=== PATIENT | male | born 1935 | race Caucasian/White ===

== ENCOUNTER → 2018-04-04 | Outpatient (CLI) | payer MEDICARE, BC ==
[~2018-04-04] MED LIST: ABAC300; ASPI81CH PO; AZIT250; CALCAVITD PO; CIPR500 PO; DIAZ5 PO; FISH1000 PO; GLUCOSAMINE1000 MG PO; HYDACE10B; HYDR-86; HYDR1TAB94 PO; KRILL OIL500 MG PO; MULT50L; NIACIN ER500 MG PO; POTCHL10ER PO; RABE20 PO; SENN187 PO; TAMS.4ER; TAMS.4ER PO; Viagra100 MG PO; ZYRTEC10 MG PO
== END ==
LOC: PLD 13:22 → LAB SHORT 13:22
DX: D22.72 Melanocytic nevi of left lower limb, including hip (principal)
CPT/HCPCS: 88305

== ENCOUNTER 2018-05-20 22:29 | Inpatient (IN) | payer MEDICARE, BC ==
[~2018-05-20] VITALS: Ht 172.7 cm; Wt 70.3 kg
[~2018-05-20 22:29] MED LIST changes: -MULT50L; +MULTI VITAMIN1 EACH PO
[2018-05-20] MEDS ORDERED: ZESTORETIC 20-251 EA PO (22:59)
[2018-05-20] MEDS ORDERED: METO25ER PO (22:59)
[2018-05-20 23:05] LABS: BASOPHILS ABSOLUTE AUTO 0.04 K/mm3 (0.00-0.23); BASOPHILS PERCENT AUTO 0 % (0-2); EOSINOPHILS ABSOLUTE AUTO 0.16 K/mm3 (0.00-0.68); EOSINOPHILS PERCENT AUTO 1 % (0-6); Hematocrit 38.4 % (37.0-53.0); Hemoglobin 13.1 g/dL (13.5-17.5); IMMATURE GRAN ABSOLUTE AUTO 0.04 K/mm3 (0.00-0.10); IMMATURE GRAN PERCENT AUTO 0 % (0-1); LYMPHOCYTES ABSOLUTE AUTO 1.61 K/mm3 (0.84-5.20); LYMPHOCYTES PERCENT AUTO 11 % (21-46); MONOCYTES ABSOLUTE AUTO 0.57 K/mm3 (0.16-1.47); MONOCYTES PERCENT AUTO 4 % (4-13); Mean Corpuscular HGB 29.9 pg (26.0-34.0); Mean Corpuscular HGB Conc 34.1 g/dL (31.5-36.5); Mean Corpuscular Volume 88 fL (80-100); Mean Platelet Volume 9.1 fL (9.1-12.4); NEUTROPHILS ABSOLUTE AUTO 12.06 K/mm3 (1.96-9.15); NEUTROPHILS PERCENT AUTO 83 % (41-73); Platelet Count 270 K/mm3 (150-400); RDW Coefficient Variation 12.8 % (11.7-14.2); RDW Standard Deviation 41.1 fL (35.1-46.3); Red Blood Cell Count 4.38 M/mm3 (4.30-5.90); White Blood Cell Count 14.48 K/mm3 (4.00-11.30)
[2018-05-20 23:23] LABS: Alanine Aminotransfer (ALT/SGP 20 U/L (12-78); Albumin, Blood 2.9 g/dL (3.4-5.0); Albumin/Globulin Ratio 0.9 (0.8-1.8); Alk Phos 54 U/L (50-136); Anion Gap 9 mmol/L (6-16); Aspartate Aminotrans (AST/SGOT 22 U/L (12-37); Bilirubin, Total 0.4 mg/dL (0.1-1.0); Blood Urea Nitrogen 9 mg/dL (8-24); Bun/Creatinine Ratio 11.3 (12.0-20.0); CO2, Blood 25 mmol/L (21-32); Calcium, Blood 7.5 mg/dL (8.5-10.1); Chloride, Blood 96 mmol/L (98-108); Creatinine, Blood 0.79 mg/dL (0.60-1.20); Globulin, Blood 3.2 g/dL (2.2-4.0); Glomerular Filtration Rate >60 (60-); Glucose, Blood 95 mg/dL (70-99); Potassium, Blood 4.1 mmol/L (3.5-5.5); Sodium, Blood 130 mmol/L (136-145); Total Protein, Blood 6.1 g/dL (6.4-8.2)
[2018-05-21 00:05] LABS: Source, Urine Clean Catch
[2018-05-21 00:14] LABS: Bilirubin, Urine Neg (Neg); Blood, Urine 1+ (Neg); Glucose Qualitative, Urine Neg (Neg); Ketones, Urine Neg (Neg); Leukocyte Esterase, Urine 1+ (Neg); Nitrite, Urine Neg (Neg); Protein, Urine Neg (Neg); Urobilinogen, Urine NORM (Normal)
[2018-05-21 00:22] LABS: Appearance, Urine Clear (Clear); Color, Urine Yellow (P-Yellow)
[2018-05-21 00:23] LABS: Bacteria Mod /hpf; Squamous Epithelial Cells Not Seen /hpf (Few); White Blood Cells, Urine 0-2 /hpf (0-5)
[2018-05-21] MEDS ORDERED: Protonix40 MG PO (00:28)
[2018-05-21] MEDS ORDERED: Ultram50 MG PO (00:28)
[2018-05-21] MEDS ORDERED: ACET325 PO (12:44)
[2018-05-21] MEDS ORDERED: AZIT500 PO (12:45)
[2018-05-21] MEDS ORDERED: CEFD300 PO (12:45)
== END 2018-05-21 13:23 | disposition home or self-care (01) | DRG 871 ==
LOC: ER 22:29 → MEDS 05-21 01:16
PROVIDERS: Emergency Medicine
DX: A41.9 Sepsis, unspecified organism (principal); J18.9 Pneumonia, unspecified organism; J96.01 Acute respiratory failure with hypoxia; E87.1 Hypo-osmolality and hyponatremia; K44.9 Diaphragmatic hernia without obstruction or gangrene; R53.81 Other malaise; E86.0 Dehydration; Z85.46 Personal history of malignant neoplasm of prostate
CPT/HCPCS: 36415; 70450; 71046; 80053; 81001; 83605; 83880; 85025; 87086; 93005; 93010; 96361; 96365; 96375; 97110; 97116; 97161; 99285; G8978; G8979; J0456; J0696; J2930; J7030; J7050

== ENCOUNTER 2018-05-23 16:16 | Observation (INO) | payer MEDICARE, BC ==
[~2018-05-23] VITALS: Ht 172.7 cm; Wt 69.9 kg
[~2018-05-23 16:16] MED LIST changes: +ACET325 PO; +AZIT500 PO; +CEFD300 PO; +METO25ER PO; +Protonix40 MG PO; +Ultram50 MG PO; +ZESTORETIC 20-251 EA PO
[2018-05-23 17:47] LABS: BASOPHILS ABSOLUTE AUTO 0.02 K/mm3 (0.00-0.23); BASOPHILS PERCENT AUTO 0 % (0-2); EOSINOPHILS ABSOLUTE AUTO 0.09 K/mm3 (0.00-0.68); EOSINOPHILS PERCENT AUTO 1 % (0-6); Hematocrit 39.1 % (37.0-53.0); Hemoglobin 13.3 g/dL (13.5-17.5); IMMATURE GRAN ABSOLUTE AUTO 0.04 K/mm3 (0.00-0.10); IMMATURE GRAN PERCENT AUTO 0 % (0-1); LYMPHOCYTES ABSOLUTE AUTO 1.46 K/mm3 (0.84-5.20); LYMPHOCYTES PERCENT AUTO 13 % (21-46); MONOCYTES ABSOLUTE AUTO 0.63 K/mm3 (0.16-1.47); MONOCYTES PERCENT AUTO 6 % (4-13); Mean Corpuscular Volume 88 fL (80-100); Mean Platelet Volume 9.6 fL (9.1-12.4); NEUTROPHILS ABSOLUTE AUTO 8.95 K/mm3 (1.96-9.15); NEUTROPHILS PERCENT AUTO 80 % (41-73); Platelet Count 315 K/mm3 (150-400); RDW Coefficient Variation 12.8 % (11.7-14.2); RDW Standard Deviation 41.9 fL (35.1-46.3); Red Blood Cell Count 4.43 M/mm3 (4.30-5.90); White Blood Cell Count 11.19 K/mm3 (4.00-11.30)
[2018-05-23 18:19] LABS: Alanine Aminotransfer (ALT/SGP 30 U/L (12-78); Albumin, Blood 3.2 g/dL (3.4-5.0); Albumin/Globulin Ratio 0.9 (0.8-1.8); Alk Phos 64 U/L (50-136); Anion Gap 8 mmol/L (6-16); Aspartate Aminotrans (AST/SGOT 34 U/L (12-37); Bilirubin, Total 0.6 mg/dL (0.1-1.0); Blood Urea Nitrogen 8 mg/dL (8-24); Bun/Creatinine Ratio 8.4 (12.0-20.0); CO2, Blood 28 mmol/L (21-32); Calcium, Blood 8.7 mg/dL (8.5-10.1); Chloride, Blood 93 mmol/L (98-108); Creatinine, Blood 0.95 mg/dL (0.60-1.20); Globulin, Blood 3.6 g/dL (2.2-4.0); Glomerular Filtration Rate >60 (60-); Glucose, Blood 94 mg/dL (70-99); Potassium, Blood 4.4 mmol/L (3.5-5.5); Sodium, Blood 129 mmol/L (136-145); Total Protein, Blood 6.8 g/dL (6.4-8.2)
[2018-05-24 05:11] LABS: BASOPHILS ABSOLUTE AUTO 0.03 K/mm3 (0.00-0.23); BASOPHILS PERCENT AUTO 0 % (0-2); EOSINOPHILS ABSOLUTE AUTO 0.08 K/mm3 (0.00-0.68); EOSINOPHILS PERCENT AUTO 1 % (0-6); Hematocrit 35.3 % (37.0-53.0); IMMATURE GRAN ABSOLUTE AUTO 0.03 K/mm3 (0.00-0.10); IMMATURE GRAN PERCENT AUTO 0 % (0-1); LYMPHOCYTES ABSOLUTE AUTO 1.37 K/mm3 (0.84-5.20); LYMPHOCYTES PERCENT AUTO 15 % (21-46); MONOCYTES ABSOLUTE AUTO 0.77 K/mm3 (0.16-1.47); MONOCYTES PERCENT AUTO 8 % (4-13); Mean Corpuscular HGB 29.3 pg (26.0-34.0); Mean Corpuscular Volume 86 fL (80-100); Mean Platelet Volume 9.4 fL (9.1-12.4); NEUTROPHILS ABSOLUTE AUTO 7.06 K/mm3 (1.96-9.15); NEUTROPHILS PERCENT AUTO 76 % (41-73); Platelet Count 278 K/mm3 (150-400); RDW Coefficient Variation 12.8 % (11.7-14.2); RDW Standard Deviation 40.4 fL (35.1-46.3); Red Blood Cell Count 4.09 M/mm3 (4.30-5.90); White Blood Cell Count 9.34 K/mm3 (4.00-11.30)
[2018-05-24 05:44] LABS: Anion Gap 10 mmol/L (6-16); Blood Urea Nitrogen 7 mg/dL (8-24); Bun/Creatinine Ratio 8.6 (12.0-20.0); CO2, Blood 26 mmol/L (21-32); Calcium, Blood 8.1 mg/dL (8.5-10.1); Chloride, Blood 101 mmol/L (98-108); Creatinine, Blood 0.81 mg/dL (0.60-1.20); Glomerular Filtration Rate >60 (60-); Glucose, Blood 87 mg/dL (70-99); Potassium, Blood 3.9 mmol/L (3.5-5.5); Sodium, Blood 137 mmol/L (136-145)
[2018-05-24 08:59] LABS: Source, Urine Clean Catch
[2018-05-24 09:04] LABS: Bilirubin, Urine Neg (Neg); Blood, Urine Neg (Neg); Glucose Qualitative, Urine Neg (Neg); Ketones, Urine Neg (Neg); Leukocyte Esterase, Urine Neg (Neg); Nitrite, Urine Neg (Neg); Protein, Urine Neg (Neg); Specific Gravity, Urine 1.015 (1.003-1.022); Urobilinogen, Urine NORM (Normal)
[2018-05-24 09:11] LABS: Appearance, Urine Clear (Clear); Color, Urine Yellow (P-Yellow)
[2018-05-24 09:20] LABS: Osmolality, Urine 280 mos/kg (15-1400)
[2018-05-24 09:46] LABS: Sodium, Urine, Random 96 mmol/L (20-110)
[2018-05-24] MEDS ORDERED: SACC250C PO (14:50)
[2018-05-24] MEDS ORDERED: Prinivil10 MG PO (14:50)
[2018-05-24] MEDS ORDERED: FURO20 PO (14:51)
[2018-05-24] MEDS ORDERED: LEVO750 PO (14:51)
== END 2018-05-24 15:34 | disposition home or self-care (01) ==
LOC: ER 16:16 → MEDS 16:17 → ER 19:15 → MEDS 19:15 → ER 19:15 → MEDS 20:06 → ENPENDDIS 05-24 12:00 → MEDS 05-24 15:34
PROVIDERS: Family Medicine; Internal Medicine
DX: J18.9 Pneumonia, unspecified organism (principal); E87.1 Hypo-osmolality and hyponatremia; I10 Essential (primary) hypertension; K44.9 Diaphragmatic hernia without obstruction or gangrene; I50.33 Acute on chronic diastolic (congestive) heart failure; I35.1 Nonrheumatic aortic (valve) insufficiency; I77.810 Thoracic aortic ectasia; Z88.5 Allergy status to narcotic agent; Z88.8 Allergy status to other drugs, medicaments and biological substances; Z79.2 Long term (current) use of antibiotics; Z79.899 Other long term (current) drug therapy
CPT/HCPCS: 36415; 71046; 80048; 80053; 81003; 83605; 83880; 83930; 83935; 84145; 84300; 85025; 87040; 93005; 93010; 93306; 96365; 96375; 99285-25; C9113; G0378; J0456; J1956; J2405; J2543; J3370; J7030; J7050

== ENCOUNTER 2018-05-30 10:45 | Inpatient (IN) | payer MEDICARE, BC ==
[~2018-05-30] VITALS: Ht 172.7 cm; Wt 65.4 kg
[~2018-05-30 10:45] MED LIST changes: +FURO20 PO; +LEVO750 PO; +Prinivil10 MG PO; +SACC250C PO
[2018-05-30 11:27] LABS: BASOPHILS ABSOLUTE AUTO 0.03 K/mm3 (0.00-0.23); BASOPHILS PERCENT AUTO 0 % (0-2); EOSINOPHILS PERCENT AUTO 0 % (0-6); Hematocrit 39.5 % (37.0-53.0); Hemoglobin 13.4 g/dL (13.5-17.5); IMMATURE GRAN ABSOLUTE AUTO 0.11 K/mm3 (0.00-0.10); IMMATURE GRAN PERCENT AUTO 1 % (0-1); LYMPHOCYTES ABSOLUTE AUTO 1.22 K/mm3 (0.84-5.20); LYMPHOCYTES PERCENT AUTO 6 % (21-46); MONOCYTES ABSOLUTE AUTO 0.64 K/mm3 (0.16-1.47); MONOCYTES PERCENT AUTO 3 % (4-13); Mean Corpuscular HGB 29.9 pg (26.0-34.0); Mean Corpuscular HGB Conc 33.9 g/dL (31.5-36.5); Mean Corpuscular Volume 88 fL (80-100); Mean Platelet Volume 8.8 fL (9.1-12.4); NEUTROPHILS PERCENT AUTO 90 % (41-73); Platelet Count 361 K/mm3 (150-400); RDW Coefficient Variation 12.8 % (11.7-14.2); RDW Standard Deviation 41.2 fL (35.1-46.3); Red Blood Cell Count 4.48 M/mm3 (4.30-5.90)
[2018-05-30 11:45] LABS: Alanine Aminotransfer (ALT/SGP 19 U/L (12-78); Albumin, Blood 3.2 g/dL (3.4-5.0); Albumin/Globulin Ratio 0.8 (0.8-1.8); Alk Phos 64 U/L (50-136); Anion Gap 9 mmol/L (6-16); Aspartate Aminotrans (AST/SGOT 16 U/L (12-37); Bilirubin, Total 0.4 mg/dL (0.1-1.0); Blood Urea Nitrogen 12 mg/dL (8-24); Bun/Creatinine Ratio 12.3 (12.0-20.0); CO2, Blood 26 mmol/L (21-32); Calcium, Blood 8.6 mg/dL (8.5-10.1); Chloride, Blood 101 mmol/L (98-108); Creatinine, Blood 0.98 mg/dL (0.60-1.20); Globulin, Blood 3.8 g/dL (2.2-4.0); Glomerular Filtration Rate >60 (60-); Glucose, Blood 137 mg/dL (70-99); Potassium, Blood 4.1 mmol/L (3.5-5.5); Sodium, Blood 136 mmol/L (136-145); Troponin I <0.015 ng/mL (0.000-0.040)
[2018-05-30 14:10] LABS: Source, Urine Clean Catch
[2018-05-30 14:14] LABS: Bilirubin, Urine Neg (Neg); Blood, Urine Neg (Neg); Glucose Qualitative, Urine Neg (Neg); Ketones, Urine 3+ (Neg); Leukocyte Esterase, Urine Neg (Neg); Nitrite, Urine Neg (Neg); Protein, Urine Neg (Neg); Urobilinogen, Urine NORM (Normal)
[2018-05-30 14:22] LABS: Appearance, Urine Clear (Clear); Color, Urine Yellow (P-Yellow)
[2018-05-30] MEDS ORDERED: PROBIOTIC1 EAC4 PO (18:00)
[2018-05-31 04:55] LABS: BASOPHILS ABSOLUTE AUTO 0.04 K/mm3 (0.00-0.23); BASOPHILS PERCENT AUTO 0 % (0-2); EOSINOPHILS ABSOLUTE AUTO 0.04 K/mm3 (0.00-0.68); EOSINOPHILS PERCENT AUTO 0 % (0-6); Hematocrit 36.2 % (37.0-53.0); Hemoglobin 11.9 g/dL (13.5-17.5); IMMATURE GRAN ABSOLUTE AUTO 0.07 K/mm3 (0.00-0.10); IMMATURE GRAN PERCENT AUTO 1 % (0-1); LYMPHOCYTES PERCENT AUTO 12 % (21-46); MONOCYTES ABSOLUTE AUTO 0.91 K/mm3 (0.16-1.47); MONOCYTES PERCENT AUTO 6 % (4-13); Mean Corpuscular HGB 28.7 pg (26.0-34.0); Mean Corpuscular HGB Conc 32.9 g/dL (31.5-36.5); Mean Corpuscular Volume 87 fL (80-100); Mean Platelet Volume 8.9 fL (9.1-12.4); NEUTROPHILS ABSOLUTE AUTO 12.08 K/mm3 (1.96-9.15); NEUTROPHILS PERCENT AUTO 81 % (41-73); Platelet Count 340 K/mm3 (150-400); RDW Coefficient Variation 13.1 % (11.7-14.2); RDW Standard Deviation 41.6 fL (35.1-46.3); Red Blood Cell Count 4.15 M/mm3 (4.30-5.90); White Blood Cell Count 14.94 K/mm3 (4.00-11.30)
[2018-05-31 05:14] LABS: Anion Gap 9 mmol/L (6-16); Blood Urea Nitrogen 8 mg/dL (8-24); Bun/Creatinine Ratio 9.5 (12.0-20.0); CO2, Blood 25 mmol/L (21-32); Chloride, Blood 106 mmol/L (98-108); Creatinine, Blood 0.84 mg/dL (0.60-1.20); Glomerular Filtration Rate >60 (60-); Glucose, Blood 100 mg/dL (70-99); Potassium, Blood 3.6 mmol/L (3.5-5.5); Sodium, Blood 140 mmol/L (136-145)
[2018-06-01 05:28] LABS: BASOPHILS ABSOLUTE AUTO 0.06 K/mm3 (0.00-0.23); BASOPHILS PERCENT AUTO 1 % (0-2); EOSINOPHILS PERCENT AUTO 1 % (0-6); Hematocrit 36.8 % (37.0-53.0); Hemoglobin 12.2 g/dL (13.5-17.5); IMMATURE GRAN ABSOLUTE AUTO 0.04 K/mm3 (0.00-0.10); IMMATURE GRAN PERCENT AUTO 0 % (0-1); LYMPHOCYTES ABSOLUTE AUTO 2.15 K/mm3 (0.84-5.20); LYMPHOCYTES PERCENT AUTO 19 % (21-46); MONOCYTES ABSOLUTE AUTO 0.73 K/mm3 (0.16-1.47); MONOCYTES PERCENT AUTO 6 % (4-13); Mean Corpuscular HGB Conc 33.2 g/dL (31.5-36.5); Mean Corpuscular Volume 88 fL (80-100); Mean Platelet Volume 9.5 fL (9.1-12.4); NEUTROPHILS PERCENT AUTO 73 % (41-73); Platelet Count 315 K/mm3 (150-400); RDW Coefficient Variation 13.1 % (11.7-14.2); RDW Standard Deviation 42.1 fL (35.1-46.3); White Blood Cell Count 11.38 K/mm3 (4.00-11.30)
[2018-06-02 05:13] LABS: BASOPHILS ABSOLUTE AUTO 0.03 K/mm3 (0.00-0.23); BASOPHILS PERCENT AUTO 0 % (0-2); EOSINOPHILS ABSOLUTE AUTO 0.03 K/mm3 (0.00-0.68); EOSINOPHILS PERCENT AUTO 0 % (0-6); Hematocrit 34.3 % (37.0-53.0); Hemoglobin 11.5 g/dL (13.5-17.5); IMMATURE GRAN ABSOLUTE AUTO 0.04 K/mm3 (0.00-0.10); IMMATURE GRAN PERCENT AUTO 0 % (0-1); LYMPHOCYTES PERCENT AUTO 17 % (21-46); MONOCYTES ABSOLUTE AUTO 0.71 K/mm3 (0.16-1.47); MONOCYTES PERCENT AUTO 6 % (4-13); Mean Corpuscular HGB 29.6 pg (26.0-34.0); Mean Corpuscular HGB Conc 33.5 g/dL (31.5-36.5); Mean Corpuscular Volume 88 fL (80-100); Mean Platelet Volume 10.3 fL (9.1-12.4); NEUTROPHILS ABSOLUTE AUTO 8.87 K/mm3 (1.96-9.15); NEUTROPHILS PERCENT AUTO 76 % (41-73); Platelet Count 311 K/mm3 (150-400); RDW Coefficient Variation 12.8 % (11.7-14.2); RDW Standard Deviation 41.9 fL (35.1-46.3); Red Blood Cell Count 3.89 M/mm3 (4.30-5.90); White Blood Cell Count 11.68 K/mm3 (4.00-11.30)
== END 2018-06-02 14:48 | disposition short-term general hospital (02) | DRG 392 ==
LOC: ER 10:45 → MEDS 15:51 → SURS 06-02 10:20
PROVIDERS: Emergency Medicine; Student in an Organized Health Care Education/Training Program
DX: K57.92 Diverticulitis of intestine, part unspecified, without perforation or abscess without bleeding (principal); I50.32 Chronic diastolic (congestive) heart failure; I11.0 Hypertensive heart disease with heart failure; K44.9 Diaphragmatic hernia without obstruction or gangrene; Z96.641 Presence of right artificial hip joint; Z98.52 Vasectomy status; E86.0 Dehydration; Z87.01 Personal history of pneumonia (recurrent); K57.30 Diverticulosis of large intestine without perforation or abscess without bleeding
CPT/HCPCS: 36415; 74177; 80048; 80053; 81003; 82947; 83605; 83690; 84484; 85025; 87040; 93005; 93010; 96361; 96365; 96375; 96376; 99285-25; C9113; J0744; J1650; J2250; J2405; J2550; J2765; J3010; J7030; J7120; Q9967

== ENCOUNTER 2018-06-11 18:05 | Emergency (ER) | payer MEDICARE, BC ==
[~2018-06-11] VITALS: Ht 172.7 cm; Wt 63.5 kg
[~2018-06-11 18:05] MED LIST changes: +PROBIOTIC1 EAC4 PO
[2018-06-11 18:44] LABS: BASOPHILS ABSOLUTE AUTO 0.04 K/mm3 (0.00-0.23); BASOPHILS PERCENT AUTO 0 % (0-2); EOSINOPHILS ABSOLUTE AUTO 0.27 K/mm3 (0.00-0.68); EOSINOPHILS PERCENT AUTO 3 % (0-6); Hemoglobin 12.9 g/dL (13.5-17.5); IMMATURE GRAN ABSOLUTE AUTO 0.04 K/mm3 (0.00-0.10); IMMATURE GRAN PERCENT AUTO 0 % (0-1); LYMPHOCYTES ABSOLUTE AUTO 1.38 K/mm3 (0.84-5.20); LYMPHOCYTES PERCENT AUTO 13 % (21-46); MONOCYTES PERCENT AUTO 6 % (4-13); Mean Corpuscular HGB 29.3 pg (26.0-34.0); Mean Corpuscular HGB Conc 33.1 g/dL (31.5-36.5); Mean Corpuscular Volume 88 fL (80-100); Mean Platelet Volume 8.9 fL (9.1-12.4); NEUTROPHILS ABSOLUTE AUTO 8.48 K/mm3 (1.96-9.15); NEUTROPHILS PERCENT AUTO 78 % (41-73); Platelet Count 442 K/mm3 (150-400); RDW Coefficient Variation 12.8 % (11.7-14.2); RDW Standard Deviation 41.7 fL (35.1-46.3); Red Blood Cell Count 4.41 M/mm3 (4.30-5.90); White Blood Cell Count 10.91 K/mm3 (4.00-11.30)
[2018-06-11 19:06] LABS: Alanine Aminotransfer (ALT/SGP 24 U/L (12-78); Albumin/Globulin Ratio 0.8 (0.8-1.8); Alk Phos 66 U/L (50-136); Anion Gap 12 mmol/L (6-16); Aspartate Aminotrans (AST/SGOT 28 U/L (12-37); Bilirubin, Total 0.4 mg/dL (0.1-1.0); Blood Urea Nitrogen 6 mg/dL (8-24); Bun/Creatinine Ratio 7.8 (12.0-20.0); CO2, Blood 24 mmol/L (21-32); Calcium, Blood 8.9 mg/dL (8.5-10.1); Chloride, Blood 99 mmol/L (98-108); Creatinine, Blood 0.77 mg/dL (0.60-1.20); Globulin, Blood 3.9 g/dL (2.2-4.0); Glomerular Filtration Rate >60 (60-); Glucose, Blood 110 mg/dL (70-99); Potassium, Blood 4.1 mmol/L (3.5-5.5); Sodium, Blood 135 mmol/L (136-145); Total Protein, Blood 6.9 g/dL (6.4-8.2); Troponin I <0.015 ng/mL (0.000-0.040)
[2018-06-11 19:26] LABS: Source, Urine Catheter
[2018-06-11 19:31] LABS: Bilirubin, Urine Neg (Neg); Blood, Urine 1+ (Neg); Glucose Qualitative, Urine Neg (Neg); Ketones, Urine 3+ (Neg); Leukocyte Esterase, Urine Neg (Neg); Nitrite, Urine Neg (Neg); Protein, Urine Neg (Neg); Specific Gravity, Urine 1.015 (1.003-1.022); Urobilinogen, Urine NORM (Normal); pH, Urine 6.5 (5.0-8.0)
[2018-06-11 19:41] LABS: Appearance, Urine Clear (Clear); Color, Urine Yellow (P-Yellow)
[2018-06-11 19:42] LABS: Squamous Epithelial Cells Not Seen /hpf (Few)
[2018-06-11 19:43] LABS: Bacteria Rare /hpf
[2018-06-11] MEDS ORDERED: PROC5 PO (20:07)
== END 2018-06-11 21:34 | disposition home or self-care (01) ==
LOC: ER 18:05
PROVIDERS: Emergency Medicine
DX: R11.2 Nausea with vomiting, unspecified (principal); E86.0 Dehydration; Z88.5 Allergy status to narcotic agent; Z88.8 Allergy status to other drugs, medicaments and biological substances; Z79.899 Other long term (current) drug therapy
CPT/HCPCS: 74022; 80053; 81001; 83690; 84484; 85025; 93005; 93010; 96361; 96374; 99284-25; J0780; J7030

== ENCOUNTER 2018-08-03 10:31 | Day surgery (SDC) | payer MEDICARE, BC ==
[~2018-08-03] VITALS: Ht 170.2 cm; Wt 66.3 kg
[~2018-08-03 10:31] MED LIST changes: +PROC5 PO; +TOLT4 PO; +TRIMIX IM
== END 2018-08-03 12:16 | disposition home or self-care (01) ==
LOC: ORSCSDS 10:31
PROVIDERS: Anesthesiology
PROC: 3E0R33Z Introduction of Anti-inflammatory into Spinal Canal, Percutaneous Approach (ICD-10-PCS; principal; 2018-08-03 11:30)
DX: M51.16 Intervertebral disc disorders with radiculopathy, lumbar region (principal); K21.9 Gastro-esophageal reflux disease without esophagitis; E11.9 Type 2 diabetes mellitus without complications; Z79.899 Other long term (current) drug therapy
CPT/HCPCS: J1040; J2001

== ENCOUNTER 2019-05-29 08:59 | Day surgery (SDC) | payer MEDICARE, BC ==
[~2019-05-29] VITALS: Ht 167 cm; Wt 69.5 kg
[~2019-05-29 08:59] MED LIST changes: +FINA5 PO; +Norco 10-325 T1 EACH PO
--- NOTE | 2019-05-29 10:33 | NUR ---
History, Chart, Medications and Allergies reviewed before start of procedure.Patient confirms NPO status and agrees with scheduled surgery. Patient reports completing Chlorhexadine shower X2 prior to admission to hospital.Surgical site prepped with 2% Chlorhexidine cloth wipe.NOSIN NASAL SWABS DONE. BOTH PATIENT AND DENY ALLERGY TO CODEINE
[2019-05-30 04:44] LABS: BASOPHILS ABSOLUTE AUTO 0.02 K/mm3 (0.00-0.23); BASOPHILS PERCENT AUTO 0 % (0-2); EOSINOPHILS PERCENT AUTO 0 % (0-6); Hematocrit 40.6 % (37.0-53.0); Hemoglobin 13.5 g/dL (13.5-17.5); IMMATURE GRAN ABSOLUTE AUTO 0.09 K/mm3 (0.00-0.10); IMMATURE GRAN PERCENT AUTO 1 % (0-1); LYMPHOCYTES ABSOLUTE AUTO 1.31 K/mm3 (0.84-5.20); LYMPHOCYTES PERCENT AUTO 7 % (21-46); MONOCYTES ABSOLUTE AUTO 0.92 K/mm3 (0.16-1.47); MONOCYTES PERCENT AUTO 5 % (4-13); Mean Corpuscular HGB 30.7 pg (26.0-34.0); Mean Corpuscular HGB Conc 33.3 g/dL (31.5-36.5); Mean Corpuscular Volume 92 fL (80-100); Mean Platelet Volume 9.9 fL (9.1-12.4); NEUTROPHILS ABSOLUTE AUTO 16.55 K/mm3 (1.96-9.15); NEUTROPHILS PERCENT AUTO 88 % (41-73); Platelet Count 242 K/mm3 (150-400); RDW Coefficient Variation 12.6 % (11.7-14.2); RDW Standard Deviation 42.6 fL (35.1-46.3); White Blood Cell Count 18.89 K/mm3 (4.00-11.30)
[2019-05-30 05:02] LABS: Anion Gap 9 mmol/L (6-16); Blood Urea Nitrogen 11 mg/dL (8-24); Bun/Creatinine Ratio 14.4 (12.0-20.0); CO2, Blood 25 mmol/L (21-32); Calcium, Blood 8.5 mg/dL (8.5-10.1); Chloride, Blood 102 mmol/L (98-108); Creatinine, Blood 0.77 mg/dL (0.60-1.20); Glomerular Filtration Rate >60 (60-); Glucose, Blood 146 mg/dL (70-99); Magnesium, Blood 1.9 mg/dL (1.6-2.4); Potassium, Blood 4.1 mmol/L (3.5-5.5); Sodium, Blood 136 mmol/L (136-145)
[2019-05-30] MEDS ORDERED: OXYC5 PO (15:31)
[2019-05-30] MEDS ORDERED: ASPI325EC PO (15:32)
--- NOTE | 2019-05-30 16:46 | NUR ---
05/30/19 1646 Vika Saha VERIFICATIONS.
== END 2019-05-30 15:50 | disposition home or self-care (01) ==
LOC: ORSCMMR 08:59 → ORD 10:45 → ORSCMMR 14:31 → SURS 14:31 → ORSCMMR 05-30 15:50 → SURS 05-30 15:50
PROVIDERS: Orthopaedic Surgery
PROC: 0SRD0J9 Replacement of Left Knee Joint with Synthetic Substitute, Cemented, Open Approach (ICD-10-PCS; principal; 2019-05-29 10:45)
DX: M17.12 Unilateral primary osteoarthritis, left knee (principal); N40.1 Benign prostatic hyperplasia with lower urinary tract symptoms; E11.9 Type 2 diabetes mellitus without complications; K21.9 Gastro-esophageal reflux disease without esophagitis; I10 Essential (primary) hypertension; Z79.899 Other long term (current) drug therapy
CPT/HCPCS: 36415; 73560-LT; 80048; 83735; 85025; 86850; 86900; 86901; 88300; 97110; 97116; 97162; 97530; C1713; C1776; J0171; J0690; J0735; J1885; J2250; J2405; J2704; J2795; J3010; J7120

== ENCOUNTER 2021-04-22 09:42 | Day surgery (SDC) | payer MEDICARE, BC ==
[~2021-04-22] VITALS: Ht 170.2 cm; Wt 62.5 kg
[~2021-04-22 09:42] MED LIST changes: +ASPI325EC PO; +OXYC5 PO
[2021-04-22] MEDS ORDERED: LABE100 PO (09:59)
[2021-04-22] MEDS ORDERED: Norco 5-325 Ta1 EACH PO (10:00)
[2021-04-22] MEDS ORDERED: EXELON1 EA11 TOP (10:01)
[2021-04-22] MEDS ORDERED: TAMS.4ER PO (10:01)
--- NOTE | 2021-04-22 10:10 | NUR ---
04/22/[address] NOTIFIED OF IRREGULAR HEART RATE, NO ORDERS GIVEN AT THIS TIME.
[2021-05-21] MEDS ORDERED: POTCHL20ER PO (08:04)
== END 2021-04-22 10:42 | disposition home or self-care (01) ==
LOC: ORSCSDS 09:42
PROVIDERS: Anesthesiology
PROC: 3E0R33Z Introduction of Anti-inflammatory into Spinal Canal, Percutaneous Approach (ICD-10-PCS; principal; 2021-04-22 10:45)
DX: M51.16 Intervertebral disc disorders with radiculopathy, lumbar region (principal); I10 Essential (primary) hypertension; K21.9 Gastro-esophageal reflux disease without esophagitis; Z87.891 Personal history of nicotine dependence; Z79.899 Other long term (current) drug therapy
CPT/HCPCS: J1040

== ENCOUNTER 2021-05-07 09:28 | Inpatient (IN) | payer MEDICARE, BC ==
[~2021-05-07] VITALS: Ht 170.2 cm; Wt 58.6 kg
[~2021-05-07 09:28] MED LIST changes: +EXELON1 EA11 TOP; +LABE100 PO; +Norco 5-325 Ta1 EACH PO
[2021-05-07] MEDS ORDERED: HYDCHL25 PO (10:02)
[2021-05-07] MEDS ORDERED: TRAZ100 PO (10:02)
[2021-05-07] MEDS ORDERED: ONDA4 PO (10:03)
[2021-05-07 10:12] LABS: BASOPHILS ABSOLUTE AUTO 0.07 K/mm3 (0.00-0.23); BASOPHILS PERCENT AUTO 1 % (0-2); EOSINOPHILS PERCENT AUTO 1 % (0-6); Hematocrit 44.4 % (37.0-53.0); Hemoglobin 14.6 g/dL (13.5-17.5); IMMATURE GRAN ABSOLUTE AUTO 0.05 K/mm3 (0.00-0.10); IMMATURE GRAN PERCENT AUTO 1 % (0-1); LYMPHOCYTES PERCENT AUTO 15 % (21-46); MONOCYTES ABSOLUTE AUTO 0.94 K/mm3 (0.16-1.47); MONOCYTES PERCENT AUTO 9 % (4-13); Mean Corpuscular HGB 29.7 pg (26.0-34.0); Mean Corpuscular HGB Conc 32.9 g/dL (31.5-36.5); Mean Corpuscular Volume 90 fL (80-100); Mean Platelet Volume 9.6 fL (9.1-12.4); NEUTROPHILS ABSOLUTE AUTO 7.84 K/mm3 (1.96-9.15); NEUTROPHILS PERCENT AUTO 74 % (41-73); Platelet Count 282 K/mm3 (150-400); RDW Coefficient Variation 13.5 % (11.7-14.2); RDW Standard Deviation 45.1 fL (35.1-46.3); Red Blood Cell Count 4.92 M/mm3 (4.30-5.90)
[2021-05-07 10:49] LABS: Free Thyroxine 1.11 ng/dL (0.70-1.60); Magnesium, Blood 2.2 mg/dL (1.6-2.4); Thyroid Stimulating Hormone 0.833 uIU/mL (0.360-4.800); Troponin I <0.015 ng/mL (0.000-0.040)
[2021-05-07 10:50] LABS: Alanine Aminotransfer (ALT/SGP 32 U/L (12-78); Albumin, Blood 3.4 g/dL (3.4-5.0); Alk Phos 75 U/L (50-136); Anion Gap 4 mmol/L (6-16); Aspartate Aminotrans (AST/SGOT 21 U/L (12-37); Bilirubin, Total 0.6 mg/dL (0.1-1.0); Blood Urea Nitrogen 11 mg/dL (8-24); Bun/Creatinine Ratio 10.8 (12.0-20.0); CO2, Blood 27 mmol/L (21-32); Calcium, Blood 8.7 mg/dL (8.5-10.1); Chloride, Blood 102 mmol/L (98-108); Creatinine, Blood 1.02 mg/dL (0.60-1.20); Globulin, Blood 3.4 g/dL (2.2-4.0); Glomerular Filtration Rate >60 (60-); Glucose, Blood 124 mg/dL (70-99); Potassium, Blood 4.1 mmol/L (3.5-5.5); Sodium, Blood 133 mmol/L (136-145); Total Protein, Blood 6.8 g/dL (6.4-8.2)
[2021-05-07 11:06] LABS: International Normalized Ratio 1.04; Prothrombin Time Results 11.2 Sec (9.7-11.5)
[2021-05-07] MEDS ORDERED: Prinivil10 MG PO (11:50)
[2021-05-07] MEDS ORDERED: ZYRTEC10 M4 PO (11:50)
[2021-05-07] MEDS ORDERED: METO50ER PO (11:50)
[2021-05-07] MEDS ORDERED: HYDROCODONE-AC1 EA11 PO (11:51)
[2021-05-07] MEDS ORDERED: TRAZ50 PO (11:51)
[2021-05-07] MEDS ORDERED: RIVASTIGMINE1 EAC3 TD (11:51)
[2021-05-07] MEDS ORDERED: MICROZIDE12.5 M1 PO (11:51)
[2021-05-07] MEDS ORDERED: TAMSULOSIN HCL0.4 M1 PO (11:52)
--- NOTE | 2021-05-07 16:03 | NUR ---
Echocardiogram completed.
[2021-05-07] MEDS ORDERED: ONDA4ODT MM (16:05)
--- NOTE | 2021-05-07 18:52 | NUR ---
new pt from er, family assisted with care until end of visiting hours, ho-chunk, sba to bathroom, a+o, saline locked, rm air, afib but improving, will continue to monitor and treat until share bsr with noc nurse and pt
--- NOTE | 2021-05-07 20:53 | NUR ---
PSYCHIATRIC ATTENDANT REPORTS AFIB 123-130 LAST TEN MINUTES. IN ROOM FOR ASSESSMENT AT THIS TIME AND PATIENT TELLING STORIES. SCHEDULE PO LOPRESSOR 25 MG GIVEN AND TRAZODONE 100 MG GIVEN FOR INSOMNIA. WILL CONTINUE TO MONITOR.
--- NOTE | 2021-05-07 21:46 | NUR ---
PATIENT ANXIOUS IN ROOM ASKING WHEN HE CAN TAKE HIS TRAZODONE. PATIENT REMINDED HE ALREADY RECEIVED HIS TRAZODONE 100 MG FOR ANXIETY/INSOMNIA. PATIENT REPORTING HE IS STILL AWAKE. HE JUST GOT OFF PHONE WITH LIGHT ON AFTER HE SAID HE WAS GOING TO BED EARLIER. ANTHONY
--- NOTE | 2021-05-07 22:10 | NUR ---
TELEMETRY CHECK: TECH REPORTS AFIB 96 DOWN FROM AFIB 123-130. PATIENT RESTING. TM
--- NOTE | 2021-05-08 02:23 | NUR ---
PATIENT REPORTS FEELING SOB AND ANXIOUS. PLACED ON 2L O2 NC STATING 96% AND WORSHIP PASTOR REPORTS AFIB-100. BP 122/90 WITH R=14. PATIENT REPORTS ALREADY FEELING LESS ANXIOUS AND SOB. RESTING IN BED. BURIAL VAULT DELIVERER AND INSTALLER NOTIFIED. ANTHONY.
--- NOTE | 2021-05-08 03:30 | NUR ---
SHIFT SUMMARY PATIENT ANXIOUS THIS SHIFT. REPORTED SOB WITH INCREASED ANXIETY. PLACED ON 2L O2 NC STATING 96%. REPORTED SOB AND ANXIETY REDUCED IN ABOUT FIVE MINUTES. PIV REMAINS INTACT. TAILOR MEN'S READY TO WEAR REPORTED AFIB 96-100 WITH ONE TEN MINUTE RUN OF 123-130 DURING PATIENT ASSESSMENT. AXOX 4 AND SBA TO BATHROOM. TRAZODONE 100 MG GIVEN SCHEDULED FOR ANXIETY/INSOMNIA. PATIENT HAD BROKEN SLEEP. LOW GRADE TEMP 99.2, BP 122/90 WITH R=14. DENIES CHEST PAIN AND N/V. COOPERATIVE WITH CARE. CALL LIGHT IN REACH. BED IN LOWEST POSITION. WILL CONTINUE TO MONITOR UNTIL DAY SHIFT NURSE ASSUMES CARE.
[2021-05-08 04:56] LABS: BASOPHILS ABSOLUTE AUTO 0.06 K/mm3 (0.00-0.23); BASOPHILS PERCENT AUTO 1 % (0-2); EOSINOPHILS ABSOLUTE AUTO 0.13 K/mm3 (0.00-0.68); EOSINOPHILS PERCENT AUTO 1 % (0-6); Hematocrit 40.8 % (37.0-53.0); Hemoglobin 13.6 g/dL (13.5-17.5); IMMATURE GRAN ABSOLUTE AUTO 0.04 K/mm3 (0.00-0.10); IMMATURE GRAN PERCENT AUTO 0 % (0-1); LYMPHOCYTES ABSOLUTE AUTO 1.28 K/mm3 (0.84-5.20); LYMPHOCYTES PERCENT AUTO 12 % (21-46); MONOCYTES PERCENT AUTO 9 % (4-13); Mean Corpuscular HGB 29.7 pg (26.0-34.0); Mean Corpuscular HGB Conc 33.3 g/dL (31.5-36.5); Mean Corpuscular Volume 89 fL (80-100); Mean Platelet Volume 9.7 fL (9.1-12.4); NEUTROPHILS ABSOLUTE AUTO 7.91 K/mm3 (1.96-9.15); NEUTROPHILS PERCENT AUTO 77 % (41-73); Platelet Count 252 K/mm3 (150-400); RDW Coefficient Variation 13.2 % (11.7-14.2); RDW Standard Deviation 43.4 fL (35.1-46.3); Red Blood Cell Count 4.58 M/mm3 (4.30-5.90); White Blood Cell Count 10.32 K/mm3 (4.00-11.30)
[2021-05-08 05:20] LABS: Anion Gap 5 mmol/L (6-16); Blood Urea Nitrogen 11 mg/dL (8-24); Bun/Creatinine Ratio 10.8 (12.0-20.0); CO2, Blood 28 mmol/L (21-32); Calcium, Blood 8.3 mg/dL (8.5-10.1); Chloride, Blood 101 mmol/L (98-108); Creatinine, Blood 1.02 mg/dL (0.60-1.20); Glomerular Filtration Rate >60 (60-); Glucose, Blood 83 mg/dL (70-99); Potassium, Blood 3.9 mmol/L (3.5-5.5); Sodium, Blood 134 mmol/L (136-145)
--- NOTE | 2021-05-08 10:41 | NUR ---
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 Anticoagulation indicated - Pt. likely to be discharge on oral anticoagulation as well. Started on oral Lasix. Once cardiology is able to diurese pt. will consider GITA to rule out infective endocarditis. Pt. not likely to discharge within the next 24 hours.
--- NOTE | 2021-05-08 16:22 | NUR ---
PT TRANFER TO PCU. GAVE REPORT TO LORENA Mcknight PT WHEELED DOWN WITH AND PUT INTO BED.
--- NOTE | 2021-05-08 16:28 | NUR ---
Update 05/08/21 1625: Met with pt. and in room this afternoon. We discussed discharge planning with potential of discharing within the next 24-48 hours. Solid support system at home with family. Patients will be transporting him home Claudia [phone]. She will also hot die picker prescriptions. No further concerns or barriers to discharge if all goes well with current treatment plan.
--- NOTE | 2021-05-08 22:01 | NUR ---
PT IS ALERT AND ORIENTED. PT DENIES CHEST PAIN OR SOB. PT'S VITALS ARE STABLE AND ON ROOM AIR WITH SATS ABOVE 92%. MEDS INFUSING PER EMAR. CALL LIGHT IS WITHIN REACH. BED ALARM IS ON. WILL CONTINUE TO MONITOR.
[2021-05-09 04:24] LABS: BASOPHILS ABSOLUTE AUTO 0.05 K/mm3 (0.00-0.23); BASOPHILS PERCENT AUTO 1 % (0-2); EOSINOPHILS ABSOLUTE AUTO 0.04 K/mm3 (0.00-0.68); EOSINOPHILS PERCENT AUTO 0 % (0-6); Hematocrit 42.3 % (37.0-53.0); Hemoglobin 14.2 g/dL (13.5-17.5); IMMATURE GRAN ABSOLUTE AUTO 0.03 K/mm3 (0.00-0.10); IMMATURE GRAN PERCENT AUTO 0 % (0-1); LYMPHOCYTES ABSOLUTE AUTO 1.68 K/mm3 (0.84-5.20); LYMPHOCYTES PERCENT AUTO 16 % (21-46); MONOCYTES ABSOLUTE AUTO 0.93 K/mm3 (0.16-1.47); MONOCYTES PERCENT AUTO 9 % (4-13); Mean Corpuscular HGB Conc 33.6 g/dL (31.5-36.5); Mean Corpuscular Volume 89 fL (80-100); Mean Platelet Volume 10.1 fL (9.1-12.4); NEUTROPHILS ABSOLUTE AUTO 7.53 K/mm3 (1.96-9.15); NEUTROPHILS PERCENT AUTO 73 % (41-73); Platelet Count 269 K/mm3 (150-400); RDW Coefficient Variation 13.1 % (11.7-14.2); Red Blood Cell Count 4.74 M/mm3 (4.30-5.90); White Blood Cell Count 10.26 K/mm3 (4.00-11.30)
[2021-05-09 04:43] LABS: International Normalized Ratio 1.14; Prothrombin Time Results 12.2 Sec (9.7-11.5)
[2021-05-09 04:51] LABS: Anion Gap 8 mmol/L (6-16); Blood Urea Nitrogen 15 mg/dL (8-24); Bun/Creatinine Ratio 14.9 (12.0-20.0); CO2, Blood 24 mmol/L (21-32); Calcium, Blood 8.2 mg/dL (8.5-10.1); Chloride, Blood 97 mmol/L (98-108); Creatinine, Blood 1.01 mg/dL (0.60-1.20); Glomerular Filtration Rate >60 (60-); Glucose, Blood 113 mg/dL (70-99); Potassium, Blood 3.8 mmol/L (3.5-5.5); Sodium, Blood 129 mmol/L (136-145)
--- NOTE | 2021-05-09 06:37 | NUR ---
SHIFT SUMMARY PT IS ALERT AND ORIENTED X4. DENIES CHESP PAIN OR SOB. VITAL SIGNS ARE STABLE AND ON ROOM AIR WITH SATS ABOVE 92%. NO ACUTE CHAGES. PT INFUSING MEDICATION PER EMAR T/O SHIFT. PT HAS REPORTED NAUSEA AND HAS VOMITED DURING THE NIGHT, MEDICATED PER EMAR. USING URINAL AT THE BESIDE AND AMBULATED TO BATHROOM WITH ASSIST. PT USES CALL LIGHT APPROPRIETLY. BED ALARM IS ON.
--- NOTE | 2021-05-09 10:20 | NUR ---
AMIODORONE GTT STOPPED PER DR. CHU ORDERS AT 0955.
--- NOTE | 2021-05-09 17:09 | NUR ---
SHIFT SUMMARY NO ACUTE EVENTS THIS SHIFT, VSS. PATIENT IS ALERT AND ORIENTED TO PLACE AND SITUATION, HOWEVER EXTREMELY FORGETFUL IN THE SHORT TERM. PATIENT PRESSED CALL LIGHT AND THIS RN RESPONDED WITH THE PT REQUESTING SOMETHING TO DRINK. THIS RN RE-EDUCATED REGARDING THE IMPORTANCE OF THE FLUIDS RESTRICTION AND AGREED TO PROVIDE PT WITH A DRINK THAT WOULD LAST THE MORNING UNTIL LUNCH. THIS RN LEFT ROOM AND WITHIN A MINUTE PT PRESSED CALL LIGHT AGAIN, WHICH ANOTHER STAFF MEMEBER RESPONDED TO WHERE PT AGAIN ASKED FOR SOMETHING TO DRINK SAYING THAT HE HAD ASKED SOMEONE HOURS AGO AND NEVER HEARD BACK. FORGETFUL INCIDENTS CONTINUED TO OCCUR T/O THE DAY, WHEN PT WAS REMINDED OF PREVIOUS CONVERSATIONS PT WAS VERY PLEASANT HOWEVER DID NOT RECALL. AMIODORONE GTT STOPPED THIS SHIFT, SEE PREVIOUS NURSING NOTE. PO AMIODORONE STARTED TODAY.
--- NOTE | 2021-05-10 05:10 | NUR ---
SHIFT SUMMARY PT IS ALERT AND ORIENTED. HAS BEEN PLEASANT T/O SHIFT. VITALS ARE STABLE AND SATS ARE ABOVE 92% ON ROOM AIR. THERE HAVE BEEN NO ACUTE CHANGES. DENIES CHEST PAIN OR SOB. PT HAS BEEN AD ALICAI IN ROOM USING BATHROOM. PT VERY AGITATED THIS MORNING. STS THAT HE HAS HAD NO SLEEP HAS SLEPT WELL T/O NIGHT WITH MINIMAL INTERUPTIONS DUE TO VITALS. PT IS FORGETFUL AT TIMES. CALL LIGHT WITHIN REACH. HAS USED CALL LIGHT APPROPRIETLY.
--- NOTE | 2021-05-10 06:39 | NUR ---
WENT INTO PT ROOM TO GIVE 0600 MED AND PATIENT WAS SLEEPING. DID NOT WAKE HIM UP OR DISTURB HIM DUE TO EARLIER AGITATION.
[2021-05-10 09:41] LABS: Anion Gap 6 mmol/L (6-16); Blood Urea Nitrogen 14 mg/dL (8-24); Bun/Creatinine Ratio 12.6 (12.0-20.0); CO2, Blood 29 mmol/L (21-32); Calcium, Blood 8.1 mg/dL (8.5-10.1); Chloride, Blood 98 mmol/L (98-108); Creatinine, Blood 1.11 mg/dL (0.60-1.20); Glomerular Filtration Rate >60 (60-); Glucose, Blood 124 mg/dL (70-99); Potassium, Blood 3.3 mmol/L (3.5-5.5); Sodium, Blood 133 mmol/L (136-145)
[2021-05-10] MEDS ORDERED: ELIQUIS5 MG PO (09:45)
[2021-05-10] MEDS ORDERED: PACERONE100 M1 PO (09:45)
[2021-05-10] MEDS ORDERED: METO50ER PO (09:46)
[2021-05-10] MEDS ORDERED: LISI5 PO (09:46)
--- NOTE | 2021-05-10 10:36 | NUR ---
DISCHARGE PT WAS DISCHARGED TODAY AT APPROXIMATELY 1029. PT WAS GIVEN INSTRUCTIONS TO FOLLOW UP WITH HIS PCP AND WITH CARDIOLOGY. PT WAS GIVEN EDUCATION ON NEW MEDICATIONS AND ENCOURAGED TO TAKE HIS BLOOD PRESSURE AT HOME TO MONITOR IT. PT VERBALIZED UNDERSTANDING WELL. PT WAS ESCORTED OUT VIA WHEELCHAIR WITH HIS SPOUSE AND PERSONAL BELONGINGS BY THE ASSISTANT PROFESSOR OF LIFE SCIENCES.
[2021-05-21] MEDS ORDERED: POTCHL20ER PO (08:04)
== END 2021-05-10 10:31 | disposition home or self-care (01) | DRG 308 ==
LOC: ER 09:28 → ERHOLD 12:33 → MEDS 12:33 → PCU 05-08 16:11
PROVIDERS: Emergency Medicine; Family Medicine; ADMIT Family Medicine
DX: I48.19 Other persistent atrial fibrillation (principal); I50.23 Acute on chronic systolic (congestive) heart failure; I42.9 Cardiomyopathy, unspecified; I11.0 Hypertensive heart disease with heart failure; M54.5 Low back pain; G89.29 Other chronic pain; E78.5 Hyperlipidemia, unspecified; K21.9 Gastro-esophageal reflux disease without esophagitis; N40.0 Benign prostatic hyperplasia without lower urinary tract symptoms; I08.0 Rheumatic disorders of both mitral and aortic valves; E87.6 Hypokalemia; Z66 Do not resuscitate; Z88.8 Allergy status to other drugs, medicaments and biological substances; Z79.899 Other long term (current) drug therapy; Z79.891 Long term (current) use of opiate analgesic
CPT/HCPCS: 36415; 71045; 80048; 80053; 83735; 83880; 84439; 84443; 84484; 85025; 85610; 85730; 87040; 93005; 93010; 93306; 94660; 94760; 94762; 96365; 96366; 96375; 96376; 99285-25; A9270; J0282; J1650; J1940; J7060

== ENCOUNTER 2021-05-29 10:44 | Day surgery (SDC) | payer MEDICARE, BC ==
[~2021-05-29 10:44] MED LIST changes: +ELIQUIS5 MG PO; +HYDCHL25 PO; +HYDROCODONE-AC1 EA11 PO; +LISI5 PO; +METO50ER PO; +MICROZIDE12.5 M1 PO; +ONDA4 PO; +ONDA4ODT MM; +PACERONE100 M1 PO; +POTCHL20ER PO; +RIVASTIGMINE1 EAC3 TD; +TAMSULOSIN HCL0.4 M1 PO; +TRAZ100 PO; +TRAZ50 PO; +ZYRTEC10 M4 PO
--- NOTE | 2021-05-29 11:17 | NUR ---
05/29/21 1117 Sheryl HewittNettie PROCEDURE CANCELLED BY DR. MAXWELL DUE TO PATIENT TAKING ELIQUIS THIS MORNING.
== END 2021-05-29 12:20 | disposition home or self-care (01) ==
LOC: ORSCSDS 10:44
DX: M54.16 Radiculopathy, lumbar region (principal); Z53.9 Procedure and treatment not carried out, unspecified reason
CPT/HCPCS: J1040

== ENCOUNTER 2021-07-28 11:32 | Emergency (ER) | payer MEDICARE, BC ==
[~2021-07-28] VITALS: Ht 170.2 cm; Wt 59.0 kg
[2021-07-28] MEDS ORDERED: OMEP20ER PO (11:48)
[2021-07-28] MEDS ORDERED: EXELON TOP (11:48)
[2021-07-28] MEDS ORDERED: TORS10 PO ×2 (11:48→13:23)
[2021-07-28 12:01] LABS: BASOPHILS ABSOLUTE AUTO 0.05 K/mm3 (0.00-0.23); BASOPHILS PERCENT AUTO 1 % (0-2); EOSINOPHILS PERCENT AUTO 1 % (0-6); Hematocrit 41.3 % (37.0-53.0); Hemoglobin 13.7 g/dL (13.5-17.5); IMMATURE GRAN ABSOLUTE AUTO 0.02 K/mm3 (0.00-0.10); IMMATURE GRAN PERCENT AUTO 0 % (0-1); LYMPHOCYTES ABSOLUTE AUTO 1.22 K/mm3 (0.84-5.20); LYMPHOCYTES PERCENT AUTO 16 % (21-46); MONOCYTES ABSOLUTE AUTO 0.61 K/mm3 (0.16-1.47); MONOCYTES PERCENT AUTO 8 % (4-13); Mean Corpuscular HGB 28.7 pg (26.0-34.0); Mean Corpuscular HGB Conc 33.2 g/dL (31.5-36.5); Mean Corpuscular Volume 86 fL (80-100); Mean Platelet Volume 10.5 fL (9.1-12.4); NEUTROPHILS ABSOLUTE AUTO 5.54 K/mm3 (1.96-9.15); NEUTROPHILS PERCENT AUTO 73 % (41-73); Platelet Count 251 K/mm3 (150-400); RDW Coefficient Variation 18.3 % (11.7-14.2); RDW Standard Deviation 56.9 fL (35.1-46.3); Red Blood Cell Count 4.78 M/mm3 (4.30-5.90); White Blood Cell Count 7.54 K/mm3 (4.00-11.30)
[2021-07-28 12:29] LABS: Alanine Aminotransfer (ALT/SGP 29 U/L (12-78); Albumin, Blood 3.2 g/dL (3.4-5.0); Albumin/Globulin Ratio 1.1 (0.8-1.8); Alk Phos 64 U/L (50-136); Anion Gap 4 mmol/L (6-16); Aspartate Aminotrans (AST/SGOT 19 U/L (12-37); Bilirubin, Total 0.8 mg/dL (0.1-1.0); Blood Urea Nitrogen 17 mg/dL (8-24); Bun/Creatinine Ratio 18.3 (12.0-20.0); CO2, Blood 24 mmol/L (21-32); Calcium, Blood 8.1 mg/dL (8.5-10.1); Chloride, Blood 109 mmol/L (98-108); Creatinine, Blood 0.93 mg/dL (0.60-1.20); Glomerular Filtration Rate >60 (60-); Glucose, Blood 96 mg/dL (70-99); Potassium, Blood 4.5 mmol/L (3.5-5.5); Sodium, Blood 137 mmol/L (136-145); Total Protein, Blood 6.2 g/dL (6.4-8.2); Troponin I <0.015 ng/mL (0.000-0.040)
== END 2021-07-28 14:33 | disposition home or self-care (01) ==
LOC: ER 11:32
PROVIDERS: Emergency Medicine
DX: I48.0 Paroxysmal atrial fibrillation (principal); I11.0 Hypertensive heart disease with heart failure; I50.9 Heart failure, unspecified; N40.0 Benign prostatic hyperplasia without lower urinary tract symptoms; Z79.899 Other long term (current) drug therapy; Z79.01 Long term (current) use of anticoagulants; Z88.8 Allergy status to other drugs, medicaments and biological substances
CPT/HCPCS: 71045; 80053; 83880; 84484; 85025; 93005; 93010; 96374; 99285-25; J1940

== ENCOUNTER 2021-08-21 06:27 | Day surgery (SDC) | payer MEDICARE, BC ==
[~2021-08-21] VITALS: Ht 167.6 cm; Wt 59.9 kg
[~2021-08-21 06:27] MED LIST changes: +EXELON TOP; +FURO40 PO; +Flomax0.4 MG PO; +HYDCHL12.5 PO; +OMEP20ER PO; +TORS10 PO
[2021-08-21] MEDS ORDERED: RIVASTIGMINE1 EAC3 TD (07:10)
== END 2021-08-21 08:00 | disposition home or self-care (01) ==
LOC: ORSCSDS 06:27
PROVIDERS: Anesthesiology
PROC: 3E0R33Z Introduction of Anti-inflammatory into Spinal Canal, Percutaneous Approach (ICD-10-PCS; principal; 2021-08-21 07:30)
DX: M51.16 Intervertebral disc disorders with radiculopathy, lumbar region (principal); I50.9 Heart failure, unspecified; I10 Essential (primary) hypertension; I48.91 Unspecified atrial fibrillation; K21.9 Gastro-esophageal reflux disease without esophagitis; Z79.01 Long term (current) use of anticoagulants; Z79.899 Other long term (current) drug therapy
CPT/HCPCS: J1040

== ENCOUNTER → 2021-10-07 | Outpatient (CLI) | payer MEDICARE, BC | END | disposition home or self-care (01) | LOC: LAB SHORT 12:30 | DX: R31.9 Hematuria, unspecified (principal) | CPT/HCPCS: 87086 ==

== ENCOUNTER 2022-04-24 15:36 | Emergency (ER) | payer MEDICARE, BC ==
[~2022-04-24] VITALS: Ht 170.2 cm; Wt 59.0 kg
[2022-04-24 16:07] LABS: BASOPHILS ABSOLUTE AUTO 0.05 K/mm3 (0.00-0.23); BASOPHILS PERCENT AUTO 1 % (0-2); EOSINOPHILS ABSOLUTE AUTO 0.11 K/mm3 (0.00-0.68); EOSINOPHILS PERCENT AUTO 1 % (0-6); Hematocrit 43.6 % (37.0-53.0); Hemoglobin 14.1 g/dL (13.5-17.5); IMMATURE GRAN ABSOLUTE AUTO 0.02 K/mm3 (0.00-0.10); IMMATURE GRAN PERCENT AUTO 0 % (0-1); LYMPHOCYTES ABSOLUTE AUTO 1.33 K/mm3 (0.84-5.20); LYMPHOCYTES PERCENT AUTO 15 % (21-46); MONOCYTES PERCENT AUTO 9 % (4-13); Mean Corpuscular HGB 28.4 pg (26.0-34.0); Mean Corpuscular HGB Conc 32.3 g/dL (31.5-36.5); Mean Corpuscular Volume 88 fL (80-100); Mean Platelet Volume 9.6 fL (9.1-12.4); NEUTROPHILS ABSOLUTE AUTO 6.73 K/mm3 (1.96-9.15); NEUTROPHILS PERCENT AUTO 75 % (41-73); Platelet Count 261 K/mm3 (150-400); RDW Coefficient Variation 14.5 % (11.7-14.2); RDW Standard Deviation 46.5 fL (35.1-46.3); Red Blood Cell Count 4.96 M/mm3 (4.30-5.90); White Blood Cell Count 9.04 K/mm3 (4.00-11.30)
[2022-04-24 16:31] LABS: Albumin, Blood 3.1 g/dL (3.4-5.0); Albumin/Globulin Ratio 1.1 (0.8-1.8); Bilirubin, Total 0.6 mg/dL (0.1-1.0); Bun/Creatinine Ratio 19.9 (12.0-20.0); Creatinine, Blood 0.75 mg/dL (0.60-1.20); Globulin, Blood 2.9 g/dL (2.2-4.0); Potassium, Blood 3.7 mmol/L (3.5-5.5)
[2022-04-24] MEDS ORDERED: Amiodarone HCl200 MG PO ×2 (20:17)
== END 2022-04-24 20:42 | disposition home or self-care (01) ==
LOC: ER 15:36
PROVIDERS: Emergency Medicine
DX: I48.91 Unspecified atrial fibrillation (principal); I10 Essential (primary) hypertension; Z88.8 Allergy status to other drugs, medicaments and biological substances; Z79.899 Other long term (current) drug therapy
CPT/HCPCS: 36415; 80053; 84484; 85025; 93005; 93010; A9270; J2060; J3475; J7030

== ENCOUNTER 2022-09-02 14:38 | Day surgery (SDC) | payer MEDICARE, BC ==
[~2022-09-02] VITALS: Ht 170.2 cm; Wt 62.0 kg
[~2022-09-02 14:38] MED LIST changes: +Amiodarone HCl200 MG PO
[2022-09-02] MEDS ORDERED: CLOPIDOGREL75 MG (15:34)
== END 2022-09-02 15:49 | disposition home or self-care (01) ==
LOC: ORSCSDS 14:38
PROVIDERS: Anesthesiology
PROC: 3E0R33Z Introduction of Anti-inflammatory into Spinal Canal, Percutaneous Approach (ICD-10-PCS; principal; 2022-09-02 16:00)
DX: M51.16 Intervertebral disc disorders with radiculopathy, lumbar region (principal); M96.1 Postlaminectomy syndrome, not elsewhere classified; I25.5 Ischemic cardiomyopathy; I48.91 Unspecified atrial fibrillation; I10 Essential (primary) hypertension; K21.9 Gastro-esophageal reflux disease without esophagitis; Z79.01 Long term (current) use of anticoagulants; Z79.899 Other long term (current) drug therapy
CPT/HCPCS: J1040

== ENCOUNTER → 2022-11-12 | Outpatient (CLI) | payer MEDICARE, BC ==
[~2022-11-12] MED LIST changes: +CLOPIDOGREL75 MG
[2022-11-12 12:54] LABS: Bacteria Not Seen /hpf; Red Blood Cells, Urine TNTC /hpf (0-2); Squamous Epithelial Cells Not Seen /hpf (Few); White Blood Cells, Urine 0-2 /hpf (0-5)
== END ==
LOC: LAB SHORT 10:00 → LAB 10:00
PROVIDERS: Family Medicine
DX: R31.9 Hematuria, unspecified (principal)
CPT/HCPCS: 81015

== ENCOUNTER 2023-04-25 10:38 | Emergency (ER) | payer MEDICARE, BC ==
[~2023-04-25] VITALS: Ht 165.1 cm; Wt 56.7 kg
[~2023-04-25 10:38] MED LIST changes: -CLOPIDOGREL75 MG; +CLOPIDOGREL75 MG PO
[2023-04-25 11:31] LABS: BASOPHILS ABSOLUTE AUTO 0.06 K/mm3 (0.00-0.23); BASOPHILS PERCENT AUTO 1 % (0-2); EOSINOPHILS ABSOLUTE AUTO 0.17 K/mm3 (0.00-0.68); EOSINOPHILS PERCENT AUTO 2 % (0-6); Hematocrit 40.9 % (37.0-53.0); Hemoglobin 13.3 g/dL (13.5-17.5); IMMATURE GRAN ABSOLUTE AUTO 0.02 K/mm3 (0.00-0.10); IMMATURE GRAN PERCENT AUTO 0 % (0-1); LYMPHOCYTES ABSOLUTE AUTO 1.59 K/mm3 (0.84-5.20); LYMPHOCYTES PERCENT AUTO 19 % (21-46); MONOCYTES ABSOLUTE AUTO 0.71 K/mm3 (0.16-1.47); MONOCYTES PERCENT AUTO 9 % (4-13); Mean Corpuscular HGB 29.2 pg (26.0-34.0); Mean Corpuscular HGB Conc 32.5 g/dL (31.5-36.5); Mean Corpuscular Volume 90 fL (80-100); Mean Platelet Volume 9.9 fL (9.1-12.4); NEUTROPHILS ABSOLUTE AUTO 5.79 K/mm3 (1.96-9.15); NEUTROPHILS PERCENT AUTO 70 % (41-73); Platelet Count 270 K/mm3 (150-400); RDW Coefficient Variation 14.4 % (11.7-14.2); RDW Standard Deviation 47.4 fL (35.1-46.3); Red Blood Cell Count 4.56 M/mm3 (4.30-5.90); White Blood Cell Count 8.34 K/mm3 (4.00-11.30)
[2023-04-25 11:56] LABS: Albumin, Blood 3.1 g/dL (3.4-5.0); Albumin/Globulin Ratio 1.1 (0.8-1.8); Bilirubin, Total 0.6 mg/dL (0.1-1.0); Bun/Creatinine Ratio 18.3 (12.0-20.0); Creatinine, Blood 0.98 mg/dL (0.60-1.20); Globulin, Blood 2.8 g/dL (2.2-4.0); Magnesium, Blood 2.1 mg/dL (1.6-2.4); Potassium, Blood 3.5 mmol/L (3.5-5.5); Total Protein, Blood 5.9 g/dL (6.4-8.2)
[2023-04-25 15:00] VITALS: BP 117/86
== END 2023-04-25 15:11 | disposition home or self-care (01) ==
LOC: ER 10:38
PROVIDERS: Student in an Organized Health Care Education/Training Program
DX: I48.91 Unspecified atrial fibrillation (principal); Z88.8 Allergy status to other drugs, medicaments and biological substances; Z79.899 Other long term (current) drug therapy; I10 Essential (primary) hypertension
CPT/HCPCS: 71045; 80053; 83735; 83880; 85025; 92960; 93005; 93010; 96365-59; 99285-25; A9270; C9113; J3475; J7030

== ENCOUNTER 2023-04-27 08:46 | Inpatient (IN) | payer MEDICARE, BC ==
[~2023-04-27] VITALS: Ht 167.6 cm; Wt 64.3 kg
[2023-04-27 10:05] LABS: BASOPHILS ABSOLUTE AUTO 0.06 K/mm3 (0.00-0.23); BASOPHILS PERCENT AUTO 1 % (0-2); EOSINOPHILS ABSOLUTE AUTO 0.19 K/mm3 (0.00-0.68); EOSINOPHILS PERCENT AUTO 2 % (0-6); Hematocrit 44.2 % (37.0-53.0); Hemoglobin 14.6 g/dL (13.5-17.5); IMMATURE GRAN ABSOLUTE AUTO 0.02 K/mm3 (0.00-0.10); IMMATURE GRAN PERCENT AUTO 0 % (0-1); LYMPHOCYTES ABSOLUTE AUTO 1.73 K/mm3 (0.84-5.20); LYMPHOCYTES PERCENT AUTO 20 % (21-46); MONOCYTES ABSOLUTE AUTO 0.76 K/mm3 (0.16-1.47); MONOCYTES PERCENT AUTO 9 % (4-13); Mean Corpuscular HGB 29.3 pg (26.0-34.0); Mean Corpuscular Volume 89 fL (80-100); Mean Platelet Volume 9.9 fL (9.1-12.4); NEUTROPHILS ABSOLUTE AUTO 5.91 K/mm3 (1.96-9.15); NEUTROPHILS PERCENT AUTO 68 % (41-73); Platelet Count 287 K/mm3 (150-400); RDW Coefficient Variation 14.1 % (11.7-14.2); RDW Standard Deviation 45.1 fL (35.1-46.3); Red Blood Cell Count 4.98 M/mm3 (4.30-5.90); White Blood Cell Count 8.67 K/mm3 (4.00-11.30)
[2023-04-27 10:16] LABS: Magnesium, Blood 1.9 mg/dL (1.6-2.4)
[2023-04-27 10:17] LABS: Bun/Creatinine Ratio 9.7 (12.0-20.0); Calcium, Blood 8.2 mg/dL (8.5-10.1); Creatinine, Blood 1.03 mg/dL (0.60-1.20); Potassium, Blood 4.1 mmol/L (3.5-5.5)
[2023-04-27 14:24] VITALS: BP 122/75
[2023-04-27] MEDS ORDERED: PANT20 PO (14:31)
--- NOTE | 2023-04-27 15:29 | NUR ---
PCU ADMIT PT BROUGHT TO PCU-08 BY SAUMYA FROM ER @ APPROX 1415. PT A&O X4, ABLE TO STAND & AMBULATE FROM [facility] TO PCU BED INDEPENDENTLY. PT VSS. MONITOR SHOWING AFIB, HR 100-120. SPO2 > 92% ON RA. PT REPORTING SOB W/ ACTIVITY, BUT STATES SOB IMPROVED SINCE RECIEVING LASIX IN ER. PT AWAITING ECHO TO BE DONE.
[2023-04-27 16:33] VITALS: BP 124/93
[2023-04-27 19:36] VITALS: BP 112/84
--- NOTE | 2023-04-27 19:45 | NUR ---
END OF SHIFT PT CONTINUES TO BE A&O X4. VSS. SPO2 > 92% ON RA. MONITOR SHOWING AFIB, HR 100-130s. REPORT GIVEN TO ACCEPTING COMPLIANCE ASSOCIATE RN.
[2023-04-27 19:55] LABS: International Normalized Ratio 1.19; Prothrombin Time Results 12.4 Sec (9.7-11.5)
[2023-04-27 23:55] VITALS: BP 119/83
[2023-04-28 03:25] LABS: BASOPHILS ABSOLUTE AUTO 0.07 K/mm3 (0.00-0.23); BASOPHILS PERCENT AUTO 1 % (0-2); EOSINOPHILS ABSOLUTE AUTO 0.28 K/mm3 (0.00-0.68); EOSINOPHILS PERCENT AUTO 3 % (0-6); Hematocrit 44.8 % (37.0-53.0); IMMATURE GRAN ABSOLUTE AUTO 0.03 K/mm3 (0.00-0.10); IMMATURE GRAN PERCENT AUTO 0 % (0-1); LYMPHOCYTES ABSOLUTE AUTO 2.39 K/mm3 (0.84-5.20); LYMPHOCYTES PERCENT AUTO 24 % (21-46); MONOCYTES ABSOLUTE AUTO 0.97 K/mm3 (0.16-1.47); MONOCYTES PERCENT AUTO 10 % (4-13); Mean Corpuscular HGB 29.8 pg (26.0-34.0); Mean Corpuscular HGB Conc 33.5 g/dL (31.5-36.5); Mean Corpuscular Volume 89 fL (80-100); Mean Platelet Volume 10.3 fL (9.1-12.4); NEUTROPHILS ABSOLUTE AUTO 6.32 K/mm3 (1.96-9.15); NEUTROPHILS PERCENT AUTO 63 % (41-73); Platelet Count 287 K/mm3 (150-400); RDW Coefficient Variation 13.9 % (11.7-14.2); RDW Standard Deviation 44.9 fL (35.1-46.3); Red Blood Cell Count 5.04 M/mm3 (4.30-5.90); White Blood Cell Count 10.06 K/mm3 (4.00-11.30)
[2023-04-28 03:55] LABS: Albumin/Globulin Ratio 0.9 (0.8-1.8); Bilirubin, Total 0.7 mg/dL (0.1-1.0); Bun/Creatinine Ratio 11.2 (12.0-20.0); Calcium, Blood 8.2 mg/dL (8.5-10.1); Creatinine, Blood 0.98 mg/dL (0.60-1.20); Globulin, Blood 3.2 g/dL (2.2-4.0); Magnesium, Blood 2.1 mg/dL (1.6-2.4); Total Protein, Blood 6.2 g/dL (6.4-8.2)
[2023-04-28 04:01] VITALS: BP 117/91
--- NOTE | 2023-04-28 05:10 | NUR ---
SHIFT SUMMARY THIS RN ASSUMED CARE OF PATIENT AT 1900. NO ACUTE CHANGES OVERNIGHT. AFIB WITH HR 100-120'S. DENIES CHEST PAIN/PRESSURE. SOB NOTED WITH EXERTION, SPO2 >92% ON RA. BP STABLE. AFEBRILE. HEP GTT INFUSING PER EMAR. ALERT AND ORIENTED FULLY. ABLE TO MAKE NEEDS KNOWN. CAHUILLA. BED IN LOWEST POSITION AND CALL LIGHT WITHIN REACH. THIS RN WILL CONTINUE TO MONITOR UNTIL SHIFT CHANGE AT 0700.
[2023-04-28 07:20] VITALS: BP 119/89
[2023-04-28 11:58] VITALS: BP 103/81
[2023-04-28 16:14] VITALS: BP 112/81
--- NOTE | 2023-04-28 16:45 | NUR ---
END OF SHIFT SUMMARY PT IS A&O X4. VSS. SPO2 >92% ON RA. AFIB HR 100-120'S. PT DENIES CP AT THIS TIME. PT DOES BECOME SOB WITH MINIMAL ACTIVITY. PT IS RESTING IN BED W/ SPOUSE @ BEDSIDE. HEPARIN GTT INFUSING @ 17 U/KG/HR. PT WITH NO OTHER COMPLAINTS AT THIS TIME. BED IN LOWEST POSITION W/ CALL LIGHT IN REACH.
[2023-04-28 19:42] VITALS: BP 100/73
[2023-04-28 23:35] VITALS: BP 114/85
[2023-04-29 04:59] VITALS: BP 115/73
--- NOTE | 2023-04-29 06:24 | NUR ---
Assumed care of pt at 1900. A/Ox4, cooperative with care. STILLAGUAMISH. Independent in room. Maintains over 95% on RA, with significant AN with any activity including talking. LS clear on top and dim at bases. Afib on tele 100-110, denies CP/pressure, VSS. Heparin gtt going per emar. Will report to erica CAMPA.
[2023-04-29 08:16] LABS: International Normalized Ratio 1.14; Prothrombin Time Results 11.9 Sec (9.7-11.5)
[2023-04-29 08:21] VITALS: BP 120/89
[2023-04-29 11:29] VITALS: BP 105/76
[2023-04-29 13:15] LABS: BASOPHILS PERCENT AUTO 1 % (0-2); EOSINOPHILS ABSOLUTE AUTO 0.36 K/mm3 (0.00-0.68); EOSINOPHILS PERCENT AUTO 4 % (0-6); Hematocrit 49.3 % (37.0-53.0); Hemoglobin 16.1 g/dL (13.5-17.5); IMMATURE GRAN ABSOLUTE AUTO 0.03 K/mm3 (0.00-0.10); IMMATURE GRAN PERCENT AUTO 0 % (0-1); LYMPHOCYTES ABSOLUTE AUTO 2.52 K/mm3 (0.84-5.20); LYMPHOCYTES PERCENT AUTO 26 % (21-46); MONOCYTES ABSOLUTE AUTO 1.08 K/mm3 (0.16-1.47); MONOCYTES PERCENT AUTO 11 % (4-13); Mean Corpuscular HGB 29.3 pg (26.0-34.0); Mean Corpuscular HGB Conc 32.7 g/dL (31.5-36.5); Mean Corpuscular Volume 90 fL (80-100); Mean Platelet Volume 10.1 fL (9.1-12.4); NEUTROPHILS ABSOLUTE AUTO 5.78 K/mm3 (1.96-9.15); NEUTROPHILS PERCENT AUTO 59 % (41-73); Platelet Count 331 K/mm3 (150-400); RDW Coefficient Variation 13.7 % (11.7-14.2); RDW Standard Deviation 45.7 fL (35.1-46.3); White Blood Cell Count 9.87 K/mm3 (4.00-11.30)
[2023-04-29 17:06] VITALS: BP 132/79
--- NOTE | 2023-04-29 18:05 | NUR ---
PER FAMILY PT TREATED FOR EARLY DEMENTIA, HE IS A/O X4. BUT IS SLIGHTLY FOREGETFUL AT TIMES. VSS. AFIB NOTED ON MONITOR, 90-130s T/O THE DAY. DENIES CP OR SOB. PLAN IS FOR ANGIO IN THE A,. CONTINUES WITH HEPARIN DRIP THAT WILL CONTINUE THROUGH THE NIGHT. PT WILL BE NPO AT MIDNIGHT, HE WAS EDUCATED ABOUT THIS.
[2023-04-29 19:17] VITALS: BP 110/80
--- NOTE | 2023-04-29 20:52 | NUR ---
ASSUMED CARE OF PT FROM ELLIE CAMPA PT HAS A HEP GTT RUNNING @ 17, RATE WAS LOWERED POST SHIFT CHANGE DUE TO APTT OF 80.8. THE PT IS FAIRLY IND IN THE ROOM AND HAS BEEN USING HIS CALL LIGHT APPROPRIATELY DURING THE DAY. THE PT WAS EDUCATED TO USE THE CALL LIGHT TONIGHT TO DESCREASE RISK OF FALLS SINCE HE IS ON A HEP GTT. W/ ANY ACITIVTY, SUCH SITTING ON THE SIDE OF HE BED AND SHAVING, HIS HR JUMPS UP TO THE 140'S-150'S. AT REST THE PT IS AFIB 100'2-120'S. THIS PT IS HARD OF HEARING BUT WEARS HEARING AIDS. HE IS ON ROOM AIR AND DENIES ANY INCREASE SOB. HE STATES HE IS FEELING BETTER SINCE BEING ON THE HEP GTT. HIS BED IS IN LOW, AND CALL LIGHT IS IN REACH. SEE NOTES FOR ANY UPDATES.
[2023-04-29 23:03] VITALS: BP 97/57
--- NOTE | 2023-04-30 01:09 | NUR ---
Assumed care of patient at approx 2345, pt appears to be sleeping in bed. I have reviewed the previous nurse documentation and am in agreement, pt woke up at approx 0045, requesting melatonin, administered. Vss. Will continue to monitor.
[2023-04-30 04:09] VITALS: BP 101/70
--- NOTE | 2023-04-30 06:54 | NUR ---
Shift Summary Dr Hawthorne at bedside this am, plans to consult statistical developer, plans to keep pt NPO for possible angio per Dr Hawthorne. Vss. No other acute changes noted. Will continue to monitor.
[2023-04-30 08:48] VITALS: BP 129/93
[2023-04-30] MEDS ORDERED: PACERONE100 M1 PO (09:58)
[2023-04-30 10:47] LABS: Bun/Creatinine Ratio 13.6 (12.0-20.0); Calcium, Blood 8.5 mg/dL (8.5-10.1); Creatinine, Blood 0.96 mg/dL (0.60-1.20); Magnesium, Blood 2.3 mg/dL (1.6-2.4); Potassium, Blood 4.7 mmol/L (3.5-5.5)
--- NOTE | 2023-04-30 18:33 | NUR ---
IV REMOVED, PRESSURE DRESSED, NO ACTIVE BLEEDING. PT AND SPOUSE EDUCATED THOROUGHLY ABOUT D/C TEACHING, DENIES ANY FURHTER QUESTIONS. PT WILL FOLLOW UP AT [facility] 05/09 WITH DEVELOPMENTAL BEHAVIORAL PHYSICIAN
== END 2023-04-30 11:30 | disposition home or self-care (01) | DRG 291 ==
LOC: ER 08:46 → PCU 08:47
PROVIDERS: Family Medicine; ADMIT Internal Medicine
DX: I11.0 Hypertensive heart disease with heart failure (principal); I50.43 Acute on chronic combined systolic (congestive) and diastolic (congestive) heart failure; I48.19 Other persistent atrial fibrillation; I08.1 Rheumatic disorders of both mitral and tricuspid valves; G89.4 Chronic pain syndrome; M47.816 Spondylosis without myelopathy or radiculopathy, lumbar region; M48.061 Spinal stenosis, lumbar region without neurogenic claudication; F01.50 Vascular dementia, unspecified severity, without behavioral disturbance, psychotic disturbance, mood disturbance, and anxiety; K22.70 Barrett's esophagus without dysplasia; G47.00 Insomnia, unspecified; I25.10 Atherosclerotic heart disease of native coronary artery without angina pectoris; N40.0 Benign prostatic hyperplasia without lower urinary tract symptoms; M54.9 Dorsalgia, unspecified; Z96.641 Presence of right artificial hip joint; Z95.5 Presence of coronary angioplasty implant and graft; Z88.8 Allergy status to other drugs, medicaments and biological substances; Z79.899 Other long term (current) drug therapy; Z90.49 Acquired absence of other specified parts of digestive tract; Z79.891 Long term (current) use of opiate analgesic; Z79.01 Long term (current) use of anticoagulants; Z98.52 Vasectomy status; Z98.890 Other specified postprocedural states; Z90.89 Acquired absence of other organs; Z87.19 Personal history of other diseases of the digestive system
CPT/HCPCS: 36415; 71045; 80048; 80053; 83735; 83880; 84484; 85025; 85610; 85730; 93005; 93010; 93306; 96365; 96375; 96376; 99285-25; A9270; C9113; G0378; J1644; J1940; J3475

== ENCOUNTER 2023-06-23 10:39 | Day surgery (SDC) | payer MEDICARE, BC ==
[~2023-06-23] VITALS: Ht 170.2 cm; Wt 60.9 kg
[~2023-06-23 10:39] MED LIST changes: +PANT20 PO
--- NOTE | 2023-06-23 11:33 | NUR ---
06/23/23 1133 MARTA BUCK PT'S , JARED, AT BEDSIDE. PT COOPERATIVE AND PLEASANT WITH CARE.
--- NOTE | 2023-06-23 12:12 | NUR ---
06/23/23 1212 Sami Fregoso NO MEDICATIONS GIVEN PER DR. MAXWELL. ONLY [address] MAXWELL.
[2023-06-23 12:25] VITALS: BP 125/71
--- NOTE | 2023-06-23 12:29 | NUR ---
06/23/[address] WAS NOTIFIED ABOUT PULSE FLUCTUATING BETWEEN 41-88. STATES PT IS ALLOWED TO GO HOME WITH THAT, NO EXTRA TREATMENT OR INTERVENTION IS NEEDED PT HAS A HX OF AFIB- ON MEDS FOR AND WILL BE GETTING A PACEMAKER IN THE NEAR FUTURE.
== END 2023-06-23 12:45 | disposition home or self-care (01) ==
LOC: ORSCSDS 10:39
PROVIDERS: Anesthesiology
PROC: 3E0R33Z Introduction of Anti-inflammatory into Spinal Canal, Percutaneous Approach (ICD-10-PCS; principal; 2023-06-23 12:00)
PROC: 3E0R3BZ Introduction of Anesthetic Agent into Spinal Canal, Percutaneous Approach (ICD-10-PCS; principal; 2023-06-23 12:00)
DX: M51.16 Intervertebral disc disorders with radiculopathy, lumbar region (principal); M96.1 Postlaminectomy syndrome, not elsewhere classified; I48.91 Unspecified atrial fibrillation; Z79.01 Long term (current) use of anticoagulants; Z79.899 Other long term (current) drug therapy
CPT/HCPCS: J1040

== ENCOUNTER → 2023-08-06 | Outpatient (CLI) | payer MEDICARE, BC | LOC: LAB 12:30 → LAB SHORT 12:30 | PROVIDERS: Family Medicine | DX: Z51.81 Encounter for therapeutic drug level monitoring (principal); Z79.899 Other long term (current) drug therapy | CPT/HCPCS: G0480 ==

== ENCOUNTER 2025-03-30 11:46 | Emergency (ER) | payer MEDICARE, BC ==
[~2025-03-30] VITALS: Ht 170.2 cm; Wt 61.2 kg
[2025-03-30 12:10] LABS: BASOPHILS ABSOLUTE AUTO 0.05 K/mm3 (0.00-0.23); BASOPHILS PERCENT AUTO 1 % (0-2); EOSINOPHILS ABSOLUTE AUTO 0.13 K/mm3 (0.00-0.68); EOSINOPHILS PERCENT AUTO 1 % (0-6); Hematocrit 43.8 % (37.0-53.0); Hemoglobin 14.1 g/dL (13.5-17.5); IMMATURE GRAN ABSOLUTE AUTO 0.01 K/mm3 (0.00-0.10); IMMATURE GRAN PERCENT AUTO 0 % (0-1); LYMPHOCYTES ABSOLUTE AUTO 1.75 K/mm3 (0.84-5.20); LYMPHOCYTES PERCENT AUTO 19 % (21-46); MONOCYTES ABSOLUTE AUTO 0.76 K/mm3 (0.16-1.47); MONOCYTES PERCENT AUTO 8 % (4-13); Mean Corpuscular HGB 26.7 pg (26.0-34.0); Mean Corpuscular HGB Conc 32.2 g/dL (31.5-36.5); Mean Corpuscular Volume 83 fL (80-100); Mean Platelet Volume 9.1 fL (9.1-12.4); NEUTROPHILS ABSOLUTE AUTO 6.35 K/mm3 (1.96-9.15); NEUTROPHILS PERCENT AUTO 70 % (41-73); Platelet Count 260 K/mm3 (150-400); RDW Coefficient Variation 17.7 % (11.7-14.2); Red Blood Cell Count 5.29 M/mm3 (4.30-5.90); White Blood Cell Count 9.05 K/mm3 (4.00-11.30)
[2025-03-30 12:29] LABS: Albumin, Blood 3.4 g/dL (3.4-5.0); Bilirubin, Total 0.5 mg/dL (0.1-1.0); Bun/Creatinine Ratio 9.8 (12.0-20.0); Calcium, Blood 8.6 mg/dL (8.5-10.1); Creatinine, Blood 0.92 mg/dL (0.60-1.20); Globulin, Blood 3.3 g/dL (2.2-4.0); Potassium, Blood 3.6 mmol/L (3.5-5.5); Total Protein, Blood 6.7 g/dL (6.4-8.2)
[2025-03-30] MEDS ORDERED: Furosemide 10 MG / ML 2ML Vial IV ONE (14:25)
[2025-03-30 14:45] VITALS: BP 145/88
== END 2025-03-30 15:31 | disposition home or self-care (01) ==
LOC: ER 11:46
PROVIDERS: Student in an Organized Health Care Education/Training Program
DX: I50.9 Heart failure, unspecified (principal); R06.02 Shortness of breath; R60.0 Localized edema; I10 Essential (primary) hypertension; I48.91 Unspecified atrial fibrillation; Z88.8 Allergy status to other drugs, medicaments and biological substances; Z79.01 Long term (current) use of anticoagulants; Z79.899 Other long term (current) drug therapy
CPT/HCPCS: 71046; 80053; 83690; 83880; 84484; 85025; 93005; 93010; 96374; 99285-25; J1938